=== PATIENT | female | born 1950 | race Caucasian/White ===

== ENCOUNTER 2016-11-15 01:15 | Emergency (ER) | payer OTHER ==
[~2016-11-15] VITALS: Ht 157.5 cm; Wt 65.8 kg
[2016-11-15] MEDS ORDERED: HYDROmorphone 1 MG/ML AMP IM ONE (01:25)
[2016-11-15 01:37] VITALS: BP 132/79
--- NOTE | 2016-11-15 01:37 | NUR ---
PT TAKEN TO BED 7
--- NOTE | 2016-11-15 01:55 | NUR ---
Dr. Deal evaluating patient at bedside.
[2016-11-15 02:10] VITALS: BP 132/79
--- NOTE | 2016-11-15 02:10 | NUR ---
Patient discharged with v/s stable. Written and verbal after care instructions given and explained. Patient alert, oriented and verbalized understanding of instructions. Ambulatory with steady gait. All questions addressed prior to discharge. ID band removed. Patient advised to follow up with PMD. Rx of ZITHROMAX AND TYLENOL W/ CODEINE given. Patient educated on indication of medication including possible reaction and side effects. Opportunity to ask questions provided and answered.
== END 2016-11-15 02:10 | disposition home or self-care (01) ==
LOC: MED 01:15
DX: J20.9 Acute bronchitis, unspecified (principal); R03.0 Elevated blood-pressure reading, without diagnosis of hypertension; Z85.72 Personal history of non-Hodgkin lymphomas
CPT/HCPCS: 99283; J1170